=== PATIENT | female | born 1970 | race Two or more races ===

== ENCOUNTER 2016-11-14 11:38 | Emergency (ER) | payer BC, OTHER ==
[2016-11-14] MEDS ORDERED: IBUPROFEN 600 MG TABLET ONE (12:30)
[2016-11-14] MEDS ORDERED: OXYMETAZOLINE HCL 0.05% 30 SPRAYS/BOT NS ONE (12:30)
[2016-11-14] MEDS ORDERED: DIPHENHYDRAMINE HCL 50 MG/1 ML VIAL ONE (12:30)
[2016-11-14] MEDS ORDERED: METOCLOPRAMIDE HCL 5 MG/ML 2ML VIAL ONE (12:30)
== END 2016-11-14 13:26 | disposition home or self-care (01) ==
LOC: ED 11:38
DX: J09.X2 Influenza due to identified novel influenza A virus with other respiratory manifestations (principal)
CPT/HCPCS: 87880; 87804; 99283 ×2; 96372 ×2; A9270 ×2; J1200; J2765